=== PATIENT | female | born 1965 | race Caucasian/White ===

== ENCOUNTER 2016-05-19 10:29 | Emergency (ER) | payer SELFPAY ==
[2016-05-19 10:43] VITALS: TEMP 98; BMI 26.6
[2016-05-19] MEDS ORDERED: ONDANSETRON 4 MG/2 ML VIAL IVPB ONE (10:52)
[2016-05-19] MEDS ORDERED: FAMOTIDINE 20 MG/50 ML IVPB 50 ML IVPB ONE ×2 (10:52→11:45)
[2016-05-19] MEDS ORDERED: SODIUM CHLORIDE 1,000 ML IV STA ×2 (10:52→10:58)
--- NOTE | 2016-05-19 10:58 | PDOC ---
History of Present Illness - General Chief Complaint: Diarrhea Stated Complaint: ABD PAIN, NAUSEA Time Seen by Provider: 05/19/16 10:43 History Source: Patient Exam Limitations: No Limitations - History of Present Illness Travel History: No Initial Comments: 05/19/16 10:53 50 yr female PMH hypothyroidism, IBS with c/o diarrhea, nausea, abd bloating for 9 days. no fever. no vomiting. 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 Pt c/o cramping to her hands and her feet. Pt drinking well denies any urinary symptoms, no recent antibiotics. Timing/Duration: reports: getting worse Past History - Past Medical History Allergies/Adverse Reactions: Allergies Allergy/AdvReac Type Severity Reaction Status Date / Time latex Allergy Verified 05/19/16 10:37 Home Medications: Ambulatory Orders Ciprofloxacin [Cipro (Restricted To Id)] 500 mg PO Q12H #10 tablet 05/19/16 Levothyroxine [Synthroid -] 25 mcg PO DAILY 05/19/16 Loperamide HCl [Imodium -] 2 mg PO Q8H PRN #14 capsule MDD 16mg 05/19/16 Metronidazole 500 mg PO TID #30 tablet 05/19/16 Spironolactone [Aldactone] 150 mg PO DAILY 05/19/16 Other medical history: NONE - Surgical History Abdominal Surgery: Yes - Reproductive History LMP comment: 05/08/16 LMP Normal: Yes - Psycho/Social/Smoking Cessation Hx Suicidal Ideation: No Smoking History: Current every day smoker Number of Cigarettes Smoked Daily: 10 Information on smoking cessation initiated: No Hx Alcohol Use: No Drug/Substance Use Hx: No Substance Use Type: None Abd/GI Specific PMHX - Complaint Specific PMHX Colitis: No Irritable Bowel Synd (IBS): Yes Review of Systems - Review of Systems Able to Perform ROS?: Yes Is the patient limited Citizen Of [place] proficient: No Constitutional: No: Symptoms Reported HEENTM: No: Symptoms Reported Respiratory: No: Symptoms reported Cardiac (ROS): No: Symptoms Reported ABD/GI: Yes: Symptoms Reported, See HPI : No: Symptoms Reported Musculoskeletal: No: Symptoms Reported Integumentary: No: Symptoms Reported Neurological: Yes: Other (cramping to hands and feet) *Physical Exam - Vital Signs Last Vital Signs Temp Pulse Resp BP Pulse Ox 98.0 F 123 H 20 126/75 97 05/19/16 10:34 05/19/16 10:34 05/19/16 10:34 05/19/16 10:34 05/19/16 10:34 - Physical Exam General Appearance: Yes: Nourished, Appropriately Dressed HEENT: positive: EOMI, ANGIE, TMs Normal, Pharynx Normal, Other (dry tounge ) Neck: positive: Supple. negative: Tender, Lymphadenopathy (R), Lymphadenopathy (L) Respiratory/Chest: positive: Lungs Clear, Normal Breath Sounds. negative: Chest Tender Cardiovascular: positive: Regular Rhythm, Regular Rate Gastrointestinal/Abdominal: positive: Normal Bowel Sounds, Tender (generalised with bloating), Soft Lymphatic: negative: Adenopathy Musculoskeletal: positive: Normal Inspection Extremity: positive: Normal Capillary Refill, Normal Inspection, Normal Range of Motion Integumentary: positive: Normal Color, Dry, Warm Neurologic: positive: Fully Oriented, Alert, Normal Mood/Affect, Normal Response , Motor Strength 06/15 ED Treatment Course - LABORATORY CBC & Chemistry Diagram: 05/19/16 12:15 05/19/16 12:15 Medical Decision Making - Medical Decision Making 05/19/16 14:48 cc: lower bad pain with left flank pain spotting no vaginal discharge some dysuria 05/19/16 14:57 pt feels better after fluids. gave apple juice for low blood sugar. no diarrhea in the ER . 05/19/16 17:16 pt feels better after the fluids wants to eat and go home. dc inst disucssed and the results of the cat scan and blood work discussed will send home on cipro and flagly as pt has had diarrhea with dehydration for 9 -10 days afebrile at this time tolerating po now. strict follow up instructions discussed pt drank a bottle of gatorade feels better after gatorade 05/19/16 17:29 05/19/16 17:40 05/19/16 17:45 *DC/Admit/Observation/Transfer Diagnosis at time of Disposition: Diarrhea Qualifiers: Diarrhea type: presumed infectious Qualified Code(s): A09 - Infectious gastroenteritis and colitis, unspecified - Discharge Dispostion Disposition: HOME Condition at time of disposition: Good - Prescriptions Prescriptions: Ciprofloxacin [Cipro (Restricted To Id)] 500 mg PO Q12H #10 tablet Loperamide HCl [Imodium -] 2 mg PO Q8H PRN #14 capsule MDD 16mg PRN Reason: Diarrhea Metronidazole 500 mg PO TID #30 tablet - Referrals Referrals: Dileep Velasquez DO [Staff Physician] - - Patient Instructions Printed Discharge Instructions: DI for Viral Gastroenteritis -- Adult Additional Instructions: clear liquids then slowly advance to dry crackers, dry toast take the medication as prescribed take lactobacilus pills (over the counter) while taking the antibiotics you can also take immodium as directed for diarrhea and cramping follow with the gastroentrologist for follow up return to ER for any worsening symptoms - Post Discharge Activity Work/School Note: Back to Work
[2016-05-19] MEDS ORDERED: ONDANSETRON 4 MG/2 ML VIAL ONE (11:44)
[2016-05-19] MEDS ORDERED: ACETAMINOPHEN 500 MG TABLET (FP) PO ONE (12:24)
[2016-05-19 12:35] LABS: BASOPHIL 0.5 % (0-2.0); EOSINOPHIL 1.4 % (0-4.5); MCH 31.7 pg (25.7-33.7); MEAN CELL VOLUME 95.9 fl (80-96); MEAN PLT VOLUME 7.8 fl (7.5-11.1); NEUTROPHILS 60.9 % (42.8-82.8); PLATELET COUNT 346 K/MM3 (134-434); RDW 13.2 % (11.6-15.6); WHITE BLOOD COUNT 9.9 K/mm3 (4.0-10.0)
[2016-05-19] MEDS ORDERED: ACETAMINOPHEN 325 MG TABLET (FP) ONE (12:36)
[2016-05-19 12:48] LABS: URINE APPEARANCE CLEAR; URINE BILIRUBIN NEGATIVE (NEGATIVE); URINE BLOOD NEGATIVE (NEGATIVE); URINE COLOR STRAW; URINE GLUCOSE (UA) NEGATIVE (NEGATIVE); URINE KETONE NEGATIVE (NEGATIVE); URINE LEUK ESTERASE NEGATIVE (NEGATIVE); URINE NITRITE NEGATIVE (NEGATIVE); URINE PROTEIN NEGATIVE (NEGATIVE); URINE UROBILINOGEN NEGATIVE E.U./dl (0.2-1.0)
[2016-05-19] MEDS ORDERED: diazePAM 2 MG TABLET PO ONE (13:24)
[2016-05-19] MEDS ORDERED: KETOROLAC TROMETHAMINE 30 MG/1 ML VIAL IVPUSH ONE (13:25)
[2016-05-19 13:29] LABS: ALBUMIN 4.1 g/dl (3.4-5.0); ANION GAP 10 (8-16); BILIRUBIN,TOTAL 0.3 mg/dL (0.2-1.0); CALCIUM 8.9 mg/dL (8.5-10.1); CO2 26 mmol/L (21-32); CREATININE 0.9 mg/dL (0.55-1.02); GLUCOSE,RANDOM 68 mg/dL (74-106); SGOT/AST 16 U/L (15-37); SGPT/ALT 24 U/L (12-78); TOT PROT 7.7 g/dl (6.4-8.2)
[2016-05-19 13:30] LABS: ALK PHOS 91 U/L (45-117)
[2016-05-19 13:50] LABS: AMYLASE 50 U/L (25-115)
[2016-05-19] MEDS ORDERED: KETOROLAC TROMETHAMINE 30 MG/1 ML VIAL ONE (13:58)
[2016-05-19] MEDS ORDERED: diazePAM 2 MG TABLET ONE (13:58)
[2016-05-19] MEDS ORDERED: DEXTROSE 5%-0.45% SALINE 1,000 ML IV SCH (15:00)
--- NOTE | 2016-05-19 16:19 | EKG ---
Test Reason : Blood Pressure : / mmHG Vent. Rate : 101 BPM Atrial Rate : 101 BPM P-R Int : 162 ms QRS Dur : 084 ms QT Int : 360 ms P-R-T Axes : 061 006 048 degrees QTc Int : 466 ms SINUS TACHYCARDIA OTHERWISE NORMAL ECG NO PREVIOUS ECGS AVAILABLE Confirmed by SOCORRO ADAME MD ([id number]) on 05/19/2016 4:18:25 PM Referred By: Confirmed By:SOCORRO ADAME MD
[2016-05-19 18:04] VITALS: BP 111/75; PULSE 70
== END 2016-05-19 17:55 | disposition home or self-care (01) ==
LOC: JER 10:29
PROC: 3E0337Z Introduction of Electrolytic and Water Balance Substance into Peripheral Vein, Percutaneous Approach (ICD-10-PCS; principal; 2016-05-19)
PROC: 3E033GC Introduction of Other Therapeutic Substance into Peripheral Vein, Percutaneous Approach (ICD-10-PCS; 2016-05-19)
DX: A09 Infectious gastroenteritis and colitis, unspecified (principal); E03.9 Hypothyroidism, unspecified; K58.0 Irritable bowel syndrome with diarrhea
CPT/HCPCS: 36415; 74177-TC; 80053; 81003; 82150; 83690; 84703; 85025; 87070; 87430; 93005; 93010; 99283-25

== ENCOUNTER 2017-02-22 19:59 | Emergency (ER) | payer OTHER ==
--- NOTE | 2017-02-22 20:14 | PDOC ---
Rapid Medical Evaluation Chief Complaint: Head/Neck problem Time Seen by Provider: 02/22/17 20:11 Medical Evaluation: Allergies Allergy/AdvReac Type Severity Reaction Status Date / Time latex Allergy Verified 05/19/16 10:37 02/22/17 20:11 51yo female patient with no past medical problems presents to ED c/o being sick x 1 month. Patient was seen by PCP 4 weeks ago, and told her it was viral, patient return after not feeling well and put on Z-marivel, patient c/o symptoms worsened and prescribed Augmentin. 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 She denies any other complaints at this time. LNMP: 1 week ago. + smoker.
[2017-02-22 20:15] VITALS: BP 131/96; PULSE 95; TEMP 97.7; BMI 29.8
[2017-02-22 22:00] LABS: BASO % 0.7 % (0-2.0); EOS % 4.6 % (0-4.5); HEMATOCRIT 40.4 % (32.4-45.2); HEMOGLOBIN 13.6 GM/dL (10.7-15.3); LYMPH % 41.3 % (8-40); MCH 31.6 pg (25.7-33.7); MCHC 33.5 g/dl (32.0-36.0); MEAN CELL VOLUME 94.3 fl (80-96); MEAN PLT VOLUME 7.6 fl (7.5-11.1); MONO % 6.8 % (3.8-10.2); NEUT % 46.6 % (42.8-82.8); PLATELET COUNT 380 K/MM3 (134-434); RBC 4.29 M/mm3 (3.60-5.2); RDW 12.6 % (11.6-15.6); WHITE BLOOD COUNT 8.2 K/mm3 (4.0-10.0)
[2017-02-22 22:44] LABS: ALBUMIN 3.7 g/dl (3.4-5.0); ANION GAP 6 (8-16); BILIRUBIN,TOTAL 0.4 mg/dL (0.2-1.0); BLOOD UREA NITROGEN 9 mg/dL (7-18); CALCIUM 8.5 mg/dL (8.5-10.1); CHLORIDE 107 mmol/L (98-107); CO2 26 mmol/L (21-32); CREATININE 0.7 mg/dL (0.55-1.02); GLUCOSE,RANDOM 76 mg/dL (74-106); POTASSIUM 4.1 mmol/L (3.5-5.1); SGOT/AST 14 U/L (15-37); SGPT/ALT 22 U/L (12-78); SODIUM 139 mmol/L (136-145); TOT PROT 6.8 g/dl (6.4-8.2)
[2017-02-22 22:46] LABS: ALK PHOS 70 U/L (45-117)
[2017-02-22 23:17] LABS: URINE APPEARANCE CLEAR; URINE BILIRUBIN NEGATIVE (NEGATIVE); URINE BLOOD NEGATIVE (NEGATIVE); URINE COLOR STRAW; URINE GLUCOSE (UA) NEGATIVE (NEGATIVE); URINE KETONE TRACE (NEGATIVE); URINE LEUK ESTERASE NEGATIVE (NEGATIVE); URINE NITRITE NEGATIVE (NEGATIVE); URINE PROTEIN NEGATIVE (NEGATIVE); URINE UROBILINOGEN NEGATIVE mg/dL (0.2-1.0)
--- NOTE | 2017-02-23 00:05 | PDOC ---
History of Present Illness - General History Source: Patient Exam Limitations: No Limitations - History of Present Illness Initial Comments: 02/23/17 00:11 Patient is a 51 year old female with no significant past medical history of High cholesterol, who presents to the ED with complaints of right sided face and neck pain that began 1 month ago. Patient reports experiencing flu like symptoms 1 month ago, stating she experienced runny nose, congestion as well as right sided neck and face pain. She reports right side neck pain is an intense pain that has begun to radiate down her right arm and back. Patient reports experiencing general fatigue. She reports seeing pcp 2 weeks ago for same symptoms, and was prescribed Z pack for 5 days with no relief. Patient reports saturday neck pain began to worsen, prompting her to go to urgent care facility and was prescribed 875mg of amoxicillin. She reports pain began to increase in intensity again yesterday while at work prompting her to come into the ED today for evaluation. Patient reports experiencing intermittent blurred vision. 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 Denies chest pain, SOB. Denies nausea, vomiting. Denies fevers, chills. Denies out of state travel. Denies any other symptoms. Allergies: Latex Social history: Director of [employer]. No smoking. No alcohol. No illicit drugs. Surgical history: Breast surgery. Stomach surgery. PMD: Not of staff. <Rick Smith - Last Filed: 02/23/17 00:11> <Tamica Mares - Last Filed: 02/23/17 00:33> - General Chief Complaint: Head/Neck problem Stated Complaint: PAIN Time Seen by Provider: 02/22/17 20:11 Past History <Rick Smith - Last Filed: 02/23/17 00:11> - Surgical History Abdominal Surgery: Yes - Suicide/Smoking/Psychosocial Hx Smoking History: Current every day smoker Number of Cigarettes Smoked Daily: 10 Information on smoking cessation initiated: No Hx Alcohol Use: No Drug/Substance Use Hx: No Substance Use Type: None <Tamica Mares - Last Filed: 02/23/17 00:33> - Past Medical History Allergies/Adverse Reactions: Allergies Allergy/AdvReac Type Severity Reaction Status Date / Time latex Allergy Verified 05/19/16 10:37 Home Medications: Ambulatory Orders Ciprofloxacin [Cipro -] 500 mg PO Q12H #10 tablet 05/19/16 Levothyroxine [Synthroid -] 25 mcg PO DAILY 05/19/16 Loperamide HCl [Imodium -] 2 mg PO Q8H PRN #14 capsule MDD 16mg 05/19/16 Metronidazole 500 mg PO TID #30 tablet 05/19/16 Spironolactone [Aldactone] 150 mg PO DAILY 05/19/16 Ibuprofen [Motrin -] 600 mg PO TID #30 tablet 02/23/17 Methocarbamol [Robaxin -] 500 mg PO TID #30 tablet 02/23/17 Review of Systems - Review of Systems Able to Perform ROS?: Yes Comments:: 02/23/17 00:11 GENERAL/CONSTITUTIONAL: No fever or chills. No weakness. HEAD, EYES, EARS, NOSE AND THROAT: +Runny nose. +Congestion. No change in vision. No ear pain or discharge. No sore throat. CARDIOVASCULAR: No chest pain or shortness of breath. RESPIRATORY: No cough, wheezing, or hemoptysis. GASTROINTESTINAL: No nausea, vomiting, diarrhea or constipation. GENITOURINARY: No dysuria, frequency, or change in urination. MUSCULOSKELETAL: +Right sided face pain. +Right sided neck pain. No joint or muscle swelling or pain. No neck or back pain. SKIN: No rash NEUROLOGIC: No headache, vertigo, loss of consciousness, or change in strength/ sensation. ENDOCRINE: No increased thirst. No abnormal weight change. HEMATOLOGIC/LYMPHATIC: No anemia, easy bleeding, or history of blood clots. ALLERGIC/IMMUNOLOGIC: No hives or skin allergy. All Other Systems: Reviewed and Negative <Rick Smith - Last Filed: 02/23/17 00:11> *Physical Exam - Vital Signs Last Vital Signs Temp Pulse Resp BP Pulse Ox 97.7 F 95 H 20 131/96 100 02/22/17 20:11 02/22/17 20:11 02/22/17 20:11 02/22/17 20:11 02/22/17 20:11 - Physical Exam Comments: 02/23/17 00:11 GENERAL: Awake, alert, and fully oriented, in no acute distress HEAD: No signs of trauma EYES: PERRLA, EOMI, sclera anicteric, conjunctiva clear ENT: Auricles normal inspection, hearing grossly normal, nares patent, oropharynx clear without exudates. Moist mucosa NECK: Normal ROM, supple, no lymphadenopathy, JVD, or masses LUNGS: Breath sounds equal, clear to auscultation bilaterally. No wheezes, and no crackles HEART: Regular rate and rhythm, normal S1 and S2, no murmurs, rubs or gallops ABDOMEN: Soft, nontender, normoactive bowel sounds. No guarding, no rebound. No masses EXTREMITIES: Normal range of motion, no edema. No clubbing or cyanosis. No cords, erythema, or tenderness NEUROLOGICAL: Cranial nerves II through XII grossly intact. Normal speech, SKIN: Warm, Dry, normal turgor, no rashes or lesions noted. <Rick Smith - Last Filed: 02/23/17 00:11> - Vital Signs Last Vital Signs Temp Pulse Resp BP Pulse Ox 97.7 F 95 H 20 131/96 100 02/22/17 20:11 02/22/17 20:11 02/22/17 20:11 02/22/17 20:11 02/22/17 20:11 <Tamica Mares - Last Filed: 02/23/17 00:33> ED Treatment Course - LABORATORY CBC & Chemistry Diagram: 02/22/17 21:40 02/22/17 21:40 - ADDITIONAL ORDERS Additional order review: Laboratory Results 02/22/17 02/22/17 22:30 21:40 Sodium 139 Potassium 4.1 Chloride 107 Carbon Dioxide 26 Anion Gap 6 L BUN 9 Creatinine 0.7 Creat Clearance w eGFR > 60 Random Glucose 76 Calcium 8.5 Total Bilirubin 0.4 D AST 14 L ALT 22 Alkaline Phosphatase 70 Creatine Kinase 98 Troponin I < 0.02 Total Protein 6.8 Albumin 3.7 Urine Color Straw Urine Appearance Clear Urine pH 6.0 Ur Specific [place] 1.006 Urine Protein Negative Urine Glucose (UA) Negative Urine Ketones Trace H Urine Blood Negative Urine Nitrite Negative Urine Bilirubin Negative Urine Urobilinogen Negative Ur Leukocyte Esterase Negative 02/22/17 21:40 RBC 4.29 MCV 94.3 MCHC 33.5 RDW 12.6 MPV 7.6 Neutrophils % 46.6 D Lymphocytes % 41.3 H D Monocytes % 6.8 Eosinophils % 4.6 H D Basophils % 0.7 - Medications Given in the ED: ED Medications Discontinued Medications Generic Name Dose Route Start Last Admin Trade Name [place] PRN Reason Stop Dose Admin Diphenhydramine HCl 50 mg 02/22/17 21:34 02/22/17 22:42 Benadryl Injection - IVPB 02/22/17 21:35 50 mg ONCE ONE Administration Oxycodone/Acetaminophen 2 combo 02/22/17 21:34 02/22/17 22:42 Percocet 5/325 - PO 02/22/17 21:35 2 combo ONCE ONE Administration <Rick Smith - Last Filed: 02/23/17 00:11> - LABORATORY CBC & Chemistry Diagram: 02/22/17 21:40 02/22/17 21:40 - ADDITIONAL ORDERS Additional order review: Laboratory Results 02/22/17 02/22/17 22:30 21:40 Sodium 139 Potassium 4.1 Chloride 107 Carbon Dioxide 26 Anion Gap 6 L BUN 9 Creatinine 0.7 Creat Clearance w eGFR > 60 Random Glucose 76 Calcium 8.5 Total Bilirubin 0.4 D AST 14 L ALT 22 Alkaline Phosphatase 70 Creatine Kinase 98 Troponin I < 0.02 Total Protein 6.8 Albumin 3.7 Urine Color Straw Urine Appearance Clear Urine pH 6.0 Ur Specific [place] 1.006 Urine Protein Negative Urine Glucose (UA) Negative Urine Ketones Trace H Urine Blood Negative Urine Nitrite Negative Urine Bilirubin Negative Urine Urobilinogen Negative Ur Leukocyte Esterase Negative 02/22/17 21:40 RBC 4.29 MCV 94.3 MCHC 33.5 RDW 12.6 MPV 7.6 Neutrophils % 46.6 D Lymphocytes % 41.3 H D Monocytes % 6.8 Eosinophils % 4.6 H D Basophils % 0.7 - RADIOLOGY Radiology Studies Ordered: Category Date Time Status CERVICAL SPINE CT W/O CONTR [CT] Stat CT Scan 02/22/17 21:[address] WITHOUT CONTRAST [CT] Stat CT Scan 02/22/17 21:[address] W/O CONTRAST [CT] Stat CT Scan 02/22/17 21:24 Taken CHEST PA & LAT [RAD] Stat Radiology 02/22/17 21:13 Ordered - Medications Given in the ED: ED Medications Discontinued Medications Generic Name Dose Route Start Last Admin Trade Name [place] PRN Reason Stop Dose Admin Diphenhydramine HCl 50 mg 02/22/17 21:34 02/22/17 22:42 Benadryl Injection - IVPB 02/22/17 21:35 50 mg ONCE ONE Administration Oxycodone/Acetaminophen 2 combo 02/22/17 21:34 02/22/17 22:42 Percocet 5/325 - PO 02/22/17 21:35 2 combo ONCE ONE Administration <Tamica Mares - Last Filed: 02/23/17 00:33> Medical Decision Making - Medical Decision Making 02/23/17 00:03 Pt comes with neck and back pain. She has multiple bodily aches and pains. She was teated with a zpak and then augmentin 875 BID x 6 days (out of 10 days) Pt comes has no fever. She will be asked to follow with outpt ENT to r/o bacterial vs other sinus inflammation. <Tamica Mares - Last Filed: 02/23/17 00:33> *DC/Admit/Observation/Transfer - Attestations Scribe Attestion: 02/23/17 00:11 Documentation prepared by Rick Smith, acting as nurses medical assistants phlebotomists for Tamica Mares MD/DO. <Rick Smith - Last Filed: 02/23/17 00:11> - Discharge Dispostion Admit: No <Tamica Mares - Last Filed: 02/23/17 00:33> Diagnosis at time of Disposition: Fibromyalgia, Musculoskeletal back pain - Discharge Dispostion Disposition: HOME Condition at time of disposition: Stable - Patient Instructions Printed Discharge Instructions: Muscle Strain, DI for Sinusitis, DI for Cervical Muscle Strain - Post Discharge Activity Forms/Work/School Notes: Back to Work
[2017-02-23] MEDS ORDERED: AMOX TR/POT CLAV 875MG/125MG TABLETS (FP) PO ONE (00:10)
--- NOTE | 2017-02-23 16:46 | EKG ---
Test Reason : Blood Pressure : / mmHG Vent. Rate : 074 BPM Atrial Rate : 074 BPM P-R Int : 174 ms QRS Dur : 094 ms QT Int : 426 ms P-R-T Axes : 070 026 048 degrees QTc Int : 472 ms NORMAL SINUS RHYTHM NORMAL ECG WHEN COMPARED WITH ECG OF 19-MAY-2016 11:21, NO SIGNIFICANT CHANGE WAS FOUND Confirmed by SEBASTIÁN JOLLY MD ([id number]) on 02/23/2017 4:45:57 PM Referred By: Confirmed By:SEBASTIÁN JOLLY MD
== END 2017-02-23 00:47 | disposition home or self-care (01) ==
LOC: JER 19:59
PROC: 3E033GC Introduction of Other Therapeutic Substance into Peripheral Vein, Percutaneous Approach (ICD-10-PCS; principal; 2017-02-22)
DX: M79.7 Fibromyalgia (principal)
CPT/HCPCS: 36415; 70450-TC; 70480-TC; 71046-TC; 72125-TC; 80053; 81003; 82550; 84484; 85025; 93005; 93010; 99282-25

== ENCOUNTER 2017-07-18 16:19 | Emergency (ER) | payer OTHER ==
[2017-07-18 16:30] VITALS: TEMP 98; BMI 28.8
--- NOTE | 2017-07-18 16:44 | PDOC ---
Rapid Medical Evaluation Chief Complaint: Pain Time Seen by Provider: 07/18/17 16:26 Medical Evaluation: Allergies Allergy/AdvReac Type Severity Reaction Status Date / Time latex Allergy Verified 07/18/17 16:26 Vital Signs Temp Pulse Resp BP Pulse Ox 98.0 F 79 18 124/83 100 07/18/17 16:26 07/18/17 16:26 07/18/17 16:26 07/18/17 16:26 07/18/17 16:26 07/18/17 16:42 pt c/o: ruq, abd pain with abd distention Pt on exam : epigastric and ruq pain, bs +x4 Pt ordered for : labs, ekg, urine, and kub, Pt to proceed to the ED Discharge Disposition - Diagnosis Epigastric abdominal pain - Discharge Dispostion Disposition: HOME Condition at time of disposition: Good Last Admission D/C Date: 05/12/98 - Prescriptions Prescriptions: Oxycodone HCl/Acetaminophen [Percocet 5-325 mg Tablet] 1 tab PO Q6H PRN #15 tablet MDD 4 PRN Reason: Pain Pantoprazole Sodium [Protonix] 40 mg PO DAILY #14 tablet. Ranitidine HCl [Zantac] 150 mg PO BID PRN #14 tablet PRN Reason: GERD - Referrals Referrals: Yajaira Zuñiga MD [Primary Care Provider] - Marky Treviño MD [Staff Physician] - - Patient Instructions Printed Discharge Instructions: [place] Diet, DI for Gastritis Additional Instructions: Please take 40 mg protonix daily. For additional relief, take a tablet of zantac every 12 hours as needed for pain control. Drink plenty of fluids and rest. You will need a GI followup. Please call tomorrow and schedule a follow up appointment. Print Language: MACEDONIAN - Post Discharge Activity Work/School Note: Back to Work
[2017-07-18 17:35] LABS: BASO % 0.5 % (0-2.0); EOS % 2.2 % (0-4.5); LYMPH % 33.9 % (8-40); MCH 32.4 pg (25.7-33.7); MCHC 34.2 g/dl (32.0-36.0); MEAN CELL VOLUME 94.6 fl (80-96); MEAN PLT VOLUME 7.7 fl (7.5-11.1); MONO % 6.4 % (3.8-10.2); PLATELET COUNT 353 K/MM3 (134-434); RBC 4.34 M/mm3 (3.60-5.2); RDW 12.9 % (11.6-15.6); WHITE BLOOD COUNT 8.2 K/mm3 (4.0-10.0)
[2017-07-18] MEDS ORDERED: ONDANSETRON 4 MG/2 ML VIAL IVPUSH ONE (17:53)
[2017-07-18] MEDS ORDERED: SODIUM CHLORIDE 1,000 ML IV STA (17:53)
[2017-07-18] MEDS ORDERED: FAMOTIDINE 20 MG/50 ML IVPB 20 MG/50 ML MG IVPB ONE ×2 (17:53→17:57)
[2017-07-18] MEDS ORDERED: MAG HYDROX/AL HYDROX/SIMETH 30 ML UNIT-DOSE CUP PO ONE (17:54)
--- NOTE | 2017-07-18 17:54 | PDOC ---
History of Present Illness - General History Source: Patient Exam Limitations: No Limitations - History of Present Illness Initial Comments: 07/18/17 19:12 The patient is a 51 year old female with no past medical history who presents to the emergency department for evaluation of epigastric pain. The patient reports moderate mid epigastric pain which is exacerbated with eating. She describes the pain as diffuse but localized in the mid epigastric area. The patient states she felt a bulge in her stomach. The patient reports bowel incontinence. She states her bowel has been a normal brown color, but comes out as strings of elena. The patient states she called her PCP who advised her to go to the emergency department for evaluation for concern of gallbladder. The patient denies chest pain, shortness of breath, headache, and dizziness. Denies fevers, chills, nausea, vomiting, and diarrhea. Allergies: Latex Past surgical history: Abdominoplasty, breast augmentation, T&A Social history: Current everyday smoker. No reported alcohol consumption or drug use. PCP: Dr. Zuñiga ([phone]) <Raoul Dumas - Last Filed: 07/18/17 19:12> <Heidy Ramirez - Last Filed: 07/19/17 21:06> - General Chief Complaint: Pain Stated Complaint: UPPER ABDOMINAL PAIN Time Seen by Provider: 07/18/17 16:26 Past History <Raoul Dumas - Last Filed: 07/18/17 19:12> - Past Medical History COPD: No - Surgical History Abdominal Surgery: Yes (abdomino plasty,breast augmentation) - Suicide/Smoking/Psychosocial Hx Smoking History: Current every day smoker Have you smoked in the past 12 months: Yes Number of Cigarettes Smoked Daily: 10 Information on smoking cessation initiated: Yes 'Breaking Loose' booklet given: 07/18/17 Hx Alcohol Use: No Drug/Substance Use Hx: No Substance Use Type: None <Heidy Ramirez - Last Filed: 07/19/17 21:06> - Past Medical History Allergies/Adverse Reactions: Allergies Allergy/AdvReac Type Severity Reaction Status Date / Time latex Allergy Verified 07/18/17 17:06 Home Medications: Ambulatory Orders Oxycodone HCl/Acetaminophen [Percocet 5-325 mg Tablet] 1 tab PO Q6H PRN #15 tablet MDD 4 06/07/18 Pantoprazole Sodium [Protonix] 40 mg PO DAILY #14 tablet. 07/18/17 Ranitidine HCl [Zantac] 150 mg PO BID PRN #14 tablet 07/18/17 Review of Systems - Review of Systems Able to Perform ROS?: Yes Comments:: GENERAL/CONSTITUTIONAL: No fever or chills. No weakness. HEAD, EYES, EARS, NOSE AND THROAT: No change in vision. No ear pain or discharge. No sore throat. CARDIOVASCULAR: No chest pain or shortness of breath. RESPIRATORY: No cough, wheezing, or hemoptysis. GASTROINTESTINAL: (+)Constipation. No nausea, vomiting, diarrhea or constipation. GENITOURINARY: No dysuria, frequency, or change in urination. MUSCULOSKELETAL: (+)Mid epigastric pain. No joint or muscle swelling. No neck or back pain. SKIN: No rash NEUROLOGIC: No headache, vertigo, loss of consciousness, or change in strength/ sensation. ENDOCRINE: No increased thirst. No abnormal weight change. HEMATOLOGIC/LYMPHATIC: No anemia, easy bleeding, or history of blood clots. ALLERGIC/IMMUNOLOGIC: No hives or skin allergy. <Raoul Dumas - Last Filed: 07/18/17 19:12> *Physical Exam - Vital Signs Last Vital Signs Temp Pulse Resp BP Pulse Ox 98.0 F 79 18 124/83 100 07/18/17 16:26 07/18/17 16:26 07/18/17 16:26 07/18/17 16:26 07/18/17 16:26 - Physical Exam Comments: GENERAL: Awake, alert, and fully oriented, in no acute distress HEAD: No signs of trauma EYES: PERRLA, EOMI, sclera anicteric, conjunctiva clear ENT: Auricles normal inspection, hearing grossly normal, nares patent. NECK: Normal ROM, supple. LUNGS: Breath sounds equal, clear to auscultation bilaterally. No wheezes, and no crackles HEART: Regular rate and rhythm, normal S1 and S2, no murmurs, rubs or gallops ABDOMEN: (+)Tenderness to epigastrium, mild guarding, no rebound, no bulges.(+) Tenderness to right upper quadrant. EXTREMITIES: Normal range of motion, no edema. No clubbing or cyanosis. No cords, erythema, or tenderness NEUROLOGICAL: Cranial nerves II through XII grossly intact. Normal speech. SKIN: Warm, Dry, normal turgor, no rashes or lesions noted. <Raoul Dumas - Last Filed: 07/18/17 19:12> - Vital Signs Last Vital Signs Temp Pulse Resp BP Pulse Ox 98.0 F 79 18 124/83 100 07/18/17 16:26 07/18/17 16:26 07/18/17 16:26 07/18/17 16:26 07/18/17 16:26 <Heidy Ramirez - Last Filed: 07/19/17 21:06> ED Treatment Course - LABORATORY CBC & Chemistry Diagram: 07/18/17 17:15 07/18/17 17:15 - ADDITIONAL ORDERS Additional order review: Laboratory Results 07/18/17 07/18/17 17:46 17:15 Sodium 138 Potassium 4.0 Chloride 106 Carbon Dioxide 25 Anion Gap 7 L BUN 9 Creatinine 0.7 Creat Clearance w eGFR > 60 Random Glucose 77 Calcium 9.2 Total Bilirubin 0.3 D AST 14 L ALT 24 Alkaline Phosphatase 69 Total Protein 6.8 Albumin 3.7 Lipase 110 Urine Color Ltyellow Urine Appearance Clear Urine pH 6.0 Ur Specific [place] 1.006 Urine Protein Negative Urine Glucose (UA) Negative Urine Ketones Negative Urine Blood 1+ H Urine Nitrite Negative Urine Bilirubin Negative Urine Urobilinogen Negative Ur Leukocyte Esterase Negative Urine WBC (Auto) 5 Urine RBC (Auto) 1 Ur Epithelial Cells Rare Urine Bacteria Many Hyaline Casts 1 Urine Mucus Rare Urine HCG, Qual Negative 07/18/17 17:15 RBC 4.34 MCV 94.6 MCHC 34.2 RDW 12.9 MPV 7.7 Neutrophils % 57.0 D Lymphocytes % 33.9 Monocytes % 6.4 Eosinophils % 2.2 Basophils % 0.5 - Medications Given in the ED: ED Medications Discontinued Medications Generic Name Dose Route Start Last Admin Trade Name Freq PRN Reason Stop Dose Admin Acetaminophen 1,000 mg 07/18/17 18:32 07/18/17 18:43 Ofirmev Injection - IVPB 07/18/17 18:33 1,000 mg ONCE ONE Administration Al Hydroxide/Mg Hydroxide 30 ml 07/18/17 17:54 07/18/17 18:03 Mylanta Oral Suspension - PO 07/18/17 17:55 30 ml ONCE ONE Administration Famotidine/Sodium Chloride 20 mg in 50 mls @ 100 mls/hr 07/18/17 17:53 18:03 Pepcid 20 Mg Premixed Ivpb - IVPB 07/18/17 18:22 100 mls/hr ONCE ONE Administration Sodium Chloride 1,000 mls @ 1,000 mls/hr 07/18/17 17:53 07/18/17 18:03 Normal Saline - IV 07/18/17 18:52 1,000 mls/hr ASDIR STA Administration Morphine Sulfate 4 mg 07/18/17 18:02 07/18/17 18:09 Morphine Injection - IVPUSH 07/18/17 18:03 4 mg ONCE ONE Administration Morphine Sulfate 4 mg 07/18/17 18:55 07/18/17 19:04 Morphine Injection - IVPUSH 07/18/17 18:56 Not Given ONCE ONE Ondansetron HCl 4 mg 07/18/17 17:53 07/18/17 18:03 Zofran Injection IVPUSH 07/18/17 17:54 4 mg ONCE ONE Administration <Raoul Dumas - Last Filed: 07/18/17 19:12> - LABORATORY CBC & Chemistry Diagram: 07/18/17 17:15 07/18/17 17:15 - ADDITIONAL ORDERS Additional order review: 07/18/17 17:15 RBC 4.34 MCV 94.6 MCHC 34.2 RDW 12.9 MPV 7.7 Neutrophils % 57.0 D Lymphocytes % 33.9 Monocytes % 6.4 Eosinophils % 2.2 Basophils % 0.5 <Heidy Ramirez - Last Filed: 07/19/17 21:06> Medical Decision Making - Medical Decision Making 07/18/17 18:12 Pt presents to the ED complaining of epigastric pain, which is worse after eating. + tenderness in the epigastric region. Differential includes pancreatitis, gallstones, less likely ACS, ulcers. Will check labs give pain and nausea control, check abdominal US, reassess. <Heidy Ramirez - Last Filed: 07/19/17 21:06> *DC/Admit/Observation/Transfer - Attestations Scribe Attestion: Documentation prepared by Raoul Dumas, acting as medical cost consultant for Heidy Ramirez MD. <Raoul Dumas - Last Filed: 07/18/17 19:12> - Discharge Dispostion Decision to Admit order: No <Truong Ramireziam - Last Filed: 07/19/17 21:06> Diagnosis at time of Disposition: Epigastric abdominal pain - Discharge Dispostion Disposition: HOME Condition at time of disposition: Good - Prescriptions Prescriptions: Oxycodone HCl/Acetaminophen [Percocet 5-325 mg Tablet] 1 tab PO Q6H PRN #15 tablet MDD 4 PRN Reason: Pain Pantoprazole Sodium [Protonix] 40 mg PO DAILY #14 tablet. Ranitidine HCl [Zantac] 150 mg PO BID PRN #14 tablet PRN Reason: GERD - Referrals Referrals: Yajaira Zuñiga MD [Primary Care Provider] - Marky Treviño MD [Staff Physician] - - Patient Instructions Printed Discharge Instructions: [place] Diet, DI for Gastritis Additional Instructions: Please take 40 mg protonix daily. For additional relief, take a tablet of zantac every 12 hours as needed for pain control. Drink plenty of fluids and rest. You will need a GI followup. Please call tomorrow and schedule a follow up appointment. Print Language: ANGOLAN - Post Discharge Activity Forms/Work/School Notes: Back to Work
[2017-07-18] MEDS ORDERED: ONDANSETRON 4 MG/2 ML VIAL ONE (17:57)
[2017-07-18] MEDS ORDERED: MAG HYDROX/AL HYDROX/SIMETH 30 ML UNIT-DOSE CUP ONE (17:57)
[2017-07-18 17:59] LABS: ALBUMIN 3.7 g/dl (3.4-5.0); ANION GAP 7 (8-16); BILIRUBIN,TOTAL 0.3 mg/dL (0.2-1.0); BLOOD UREA NITROGEN 9 mg/dL (7-18); CALCIUM 9.2 mg/dL (8.5-10.1); CHLORIDE 106 mmol/L (98-107); CO2 25 mmol/L (21-32); CREATININE 0.7 mg/dL (0.55-1.02); GLUCOSE,RANDOM 77 mg/dL (74-106); LIPASE 110 U/L (73-393); SGOT/AST 14 U/L (15-37); SGPT/ALT 24 U/L (12-78); SODIUM 138 mmol/L (136-145); TOT PROT 6.8 g/dl (6.4-8.2)
[2017-07-18 18:00] LABS: ALK PHOS 69 U/L (45-117)
[2017-07-18] MEDS ORDERED: morphine CARPU-JECT 4 MG/1 ML DISP.SYRIN IVPUSH ONE ×2 (18:02→18:55)
[2017-07-18] MEDS ORDERED: morphine SULFATE 4 MG/ML VIAL ONE ×2 (18:05→18:56)
[2017-07-18 18:16] LABS: URINE APPEARANCE CLEAR; URINE BILIRUBIN NEGATIVE (<2.0 mg/dL); URINE BLOOD 1+ (NEGATIVE); URINE COLOR LTYELLOW; URINE GLUCOSE (UA) NEGATIVE (NEGATIVE); URINE KETONE NEGATIVE (NEGATIVE); URINE LEUK ESTERASE NEGATIVE (NEGATIVE); URINE NITRITE NEGATIVE (NEGATIVE); URINE PROTEIN NEGATIVE (NEGATIVE); URINE UROBILINOGEN NEGATIVE mg/dL (0.2-1.0)
[2017-07-18 18:28] LABS: EPI CELLS RARE /HPF (FEW); URINE BACTERIA MANY /hpf (NONE SEEN); URINE HYALINE CAST 1 /lpf; URINE MUCUS RARE
[2017-07-18] MEDS ORDERED: ACETAMINOPHEN 1000 MG/100 ML VIAL (NON FORMULARY) IVPB ONE (18:32)
[2017-07-18] MEDS ORDERED: ACETAMINOPHEN INJECTION 100 ML IVPB ONE (18:39)
[2017-07-18 18:43] LABS: HCG,QUALITATIVE URINE NEGATIVE
[2017-07-18 20:17] VITALS: BP 127/78; PULSE 84
--- NOTE | 2017-07-18 23:04 | PDOC ---
*Physical Exam - Vital Signs Last Vital Signs Temp Pulse Resp BP Pulse Ox 98.0 F 84 17 127/78 98 07/18/17 16:26 07/18/17 20:16 07/18/17 20:16 07/18/17 20:16 07/18/17 20:16 ED Treatment Course - LABORATORY CBC & Chemistry Diagram: 07/18/17 17:15 07/18/17 17:15 - ADDITIONAL ORDERS Additional order review: Laboratory Results 07/18/17 07/18/17 17:46 17:15 Sodium 138 Potassium 4.0 Chloride 106 Carbon Dioxide 25 Anion Gap 7 L BUN 9 Creatinine 0.7 Creat Clearance w eGFR > 60 Random Glucose 77 Calcium 9.2 Total Bilirubin 0.3 D AST 14 L ALT 24 Alkaline Phosphatase 69 Total Protein 6.8 Albumin 3.7 Lipase 110 Urine Color Ltyellow Urine Appearance Clear Urine pH 6.0 Ur Specific [place] 1.006 Urine Protein Negative Urine Glucose (UA) Negative Urine Ketones Negative Urine Blood 1+ H Urine Nitrite Negative Urine Bilirubin Negative Urine Urobilinogen Negative Ur Leukocyte Esterase Negative Urine WBC (Auto) 5 Urine RBC (Auto) 1 Ur Epithelial Cells Rare Urine Bacteria Many Hyaline Casts 1 Urine Mucus Rare Urine HCG, Qual Negative 07/18/17 17:15 RBC 4.34 MCV 94.6 MCHC 34.2 RDW 12.9 MPV 7.7 Neutrophils % 57.0 D Lymphocytes % 33.9 Monocytes % 6.4 Eosinophils % 2.2 Basophils % 0.5 - RADIOLOGY Radiology Studies Ordered: Category Date Time Status ABDOMEN & PELVIS CT WITH CONTR [CT] Stat CT Scan 07/18/17 20:27 Completed - Medications Given in the ED: ED Medications Discontinued Medications Generic Name Dose Route Start Last Admin Trade Name [place] PRN Reason Stop Dose Admin Acetaminophen 1,000 mg 07/18/17 18:32 07/18/17 18:43 Ofirmev Injection - IVPB 07/18/17 18:33 1,000 mg ONCE ONE Administration Al Hydroxide/Mg Hydroxide 30 ml 07/18/17 17:54 07/18/17 18:03 Mylanta Oral Suspension - PO 07/18/17 17:55 30 ml ONCE ONE Administration Fentanyl 25 mcg 07/18/17 19:01 07/18/17 19:17 Sublimaze Injection - IVPUSH 07/18/17 19:02 25 mcg ONCE ONE Administration Fentanyl 25 mcg 07/18/17 21:54 07/18/17 22:06 Sublimaze Injection - IVPUSH 07/18/17 21:55 25 mcg ONCE ONE Administration Famotidine/Sodium Chloride 20 mg in 50 mls @ 100 mls/hr 07/18/17 17:53 18:03 Pepcid 20 Mg Premixed Ivpb - IVPB 07/18/17 18:22 100 mls/hr ONCE ONE Administration Sodium Chloride 1,000 mls @ 1,000 mls/hr 07/18/17 17:53 07/18/17 18:03 Normal Saline - IV 07/18/17 18:52 1,000 mls/hr ASDIR STA Administration Morphine Sulfate 4 mg 07/18/17 18:02 07/18/17 18:09 Morphine Injection - IVPUSH 07/18/17 18:03 4 mg ONCE ONE Administration Morphine Sulfate 4 mg 07/18/17 18:55 07/18/17 19:04 Morphine Injection - IVPUSH 07/18/17 18:56 Not Given ONCE ONE Ondansetron HCl 4 mg 07/18/17 17:53 07/18/17 18:03 Zofran Injection IVPUSH 07/18/17 17:54 4 mg ONCE ONE Administration Medical Decision Making - Medical Decision Making 07/18/17 22:59 Sign-out received from outgoing Emergency Physician Dr. Ramirez Pt interviewed and examined Ancillary studies reviewed Case discussed in detail with oncoming Emergency Physician including history, physical exam and ancillary studies. Urine Test Results Urine Color Ltyellow 07/18/17 17:46 Urine Appearance Clear 07/18/17 17:46 Urine pH 6.0 (5.0-8.0) 07/18/17 17:46 Ur Specific [place] 1.006 (1.001-1.035) 07/18/17 17:46 Urine Protein Negative (NEGATIVE) 07/18/17 17:46 Urine Glucose (UA) Negative (NEGATIVE) 07/18/17 17:46 Urine Ketones Negative (NEGATIVE) 07/18/17 17:46 Urine Blood 1+ (NEGATIVE) H 07/18/17 17:46 Urine Nitrite Negative (NEGATIVE) 07/18/17 17:46 Urine Bilirubin Negative (<2.0 mg/dL) 07/18/17 17:46 Ur Leukocyte Esterase Negative (NEGATIVE) 07/18/17 17:46 Ur Epithelial Cells Rare /HPF (FEW) 07/18/17 17:46 Urine Bacteria Many /hpf (NONE SEEN) 07/18/17 17:46 Urine Mucus Rare 07/18/17 17:46 CBC, BMP 07/18/17 17:15 07/18/17 17:15 CMP Sodium 138 mmol/L (136-145) 07/18/17 17:15 Potassium 4.0 mmol/L (3.5-5.1) 07/18/17 17:15 Chloride 106 mmol/L (98-107) 07/18/17 17:15 Carbon Dioxide 25 mmol/L (21-32) 07/18/17 17:15 Anion Gap 7 (8-16) L 07/18/17 17:15 BUN 9 mg/dL (7-18) 07/18/17 17:15 Creatinine 0.7 mg/dL (0.55-1.02) 07/18/17 17:15 Creat Clearance w eGFR > 60 (>60) 07/18/17 17:15 Random Glucose 77 mg/dL (74-106) 07/18/17 17:15 Calcium 9.2 mg/dL (8.5-10.1) 07/18/17 17:15 Total Bilirubin 0.3 mg/dL (0.2-1.0) D 07/18/17 17:15 AST 14 U/L (15-37) L 07/18/17 17:15 ALT 24 U/L (12-78) 07/18/17 17:15 Alkaline Phosphatase 69 U/L (45-117) 07/18/17 17:15 Total Protein 6.8 g/dl (6.4-8.2) 07/18/17 17:15 Albumin 3.7 g/dl (3.4-5.0) 07/18/17 17:15 Lipase 110 U/L (73-393) 07/18/17 17:15 CT and ultrasound reviewed. No acute findings. I was signed out a patient with upper abdominal pain. The patient has epigastric pain but with a workup here that is unremarkable, I suspect the patient may potentially have gastritis or peptic ulcer disease. We'll initiate the patient on Protonix and Zantac and have the patient follow up with gastrology. I advised the patient may require endoscopy to further evaluate for ulcer disease or H. pylori. Patient will be driven home by her family. She verbalizes understanding and agrees with plan. I discussed the physical exam findings, ancillary test results and final diagnoses with the patient. I answered all of the patient's questions. The patient was satisfied with the care received and felt comfortable with the discharge plan and treatment plan. The patient will call their primary care physician within 24 hours to arrange follow-up and will return to the Emergency Department with any new, persistant or worsening symptoms. *DC/Admit/Observation/Transfer Diagnosis at time of Disposition: Epigastric abdominal pain - Discharge Dispostion Disposition: HOME Condition at time of disposition: Stable Decision to Admit order: No - Prescriptions Prescriptions: Oxycodone HCl/Acetaminophen [Percocet 5-325 mg Tablet] 1 tab PO Q6H PRN #15 tablet MDD 4 PRN Reason: Pain Pantoprazole Sodium [Protonix] 40 mg PO DAILY #14 tablet. Ranitidine HCl [Zantac] 150 mg PO BID PRN #14 tablet PRN Reason: GERD - Referrals Referrals: Yajaira Zuñiga MD [Primary Care Provider] - Marky Treviño MD [Staff Physician] - - Patient Instructions Printed Discharge Instructions: DI for Gastritis, [place] Diet Additional Instructions: Please take 40 mg protonix daily. For additional relief, take a tablet of zantac every 12 hours as needed for pain control. Drink plenty of fluids and rest. You will need a GI followup. Please call tomorrow and schedule a follow up appointment. Print Language: DOMINICAN - Post Discharge Activity Forms/Work/School Notes: Back to Work
--- NOTE | 2017-07-19 10:25 | EKG ---
Test Reason : Blood Pressure : / mmHG Vent. Rate : 075 BPM Atrial Rate : 075 BPM P-R Int : 170 ms QRS Dur : 090 ms QT Int : 384 ms P-R-T Axes : 055 -05 053 degrees QTc Int : 428 ms NORMAL SINUS RHYTHM CANNOT RULE OUT ANTERIOR INFARCT , AGE UNDETERMINED ABNORMAL ECG WHEN COMPARED WITH ECG OF 22-FEB-2017 23:23, NO SIGNIFICANT CHANGE WAS FOUND Confirmed by JAMIE ROMO MD ([id number]) on 07/19/2017 10:24:54 AM Referred By: Confirmed By:JAMIE ROMO MD
== END 2017-07-18 23:24 | disposition home or self-care (01) ==
LOC: JER 16:19
DX: R10.13 Epigastric pain (principal)
CPT/HCPCS: 36415; 74177-TC; 76705-TC; 80053; 81003; 81015; 83690; 84703; 85025; 93005; 93010; 99284-25; J0131; J7030

== ENCOUNTER 2018-02-17 10:23 | Emergency (ER) | payer OTHER ==
[2018-02-17 10:33] VITALS: BP 128/78; PULSE 86; TEMP 97.9; BMI 29.0
[2018-02-17 11:26] LABS: URINE APPEARANCE CLEAR; URINE BILIRUBIN NEGATIVE (<2.0 mg/dL); URINE COLOR LTYELLOW; URINE GLUCOSE (UA) NEGATIVE (NEGATIVE); URINE KETONE NEGATIVE (NEGATIVE); URINE LEUK ESTERASE NEGATIVE (NEGATIVE); URINE NITRITE NEGATIVE (NEGATIVE); URINE PROTEIN NEGATIVE (NEGATIVE); URINE UROBILINOGEN NEGATIVE mg/dL (0.2-1.0)
[2018-02-17 11:38] LABS: EPI CELLS RARE /HPF (FEW); URINE BACTERIA RARE /hpf (NONE SEEN)
--- NOTE | 2018-02-17 12:21 | PDOC ---
History of Present Illness - General Chief Complaint: Vaginal Sxs Stated Complaint: PAIN Time Seen by Provider: 02/17/18 11:21 History Source: Patient Exam Limitations: Clinical Condition - History of Present Illness Initial Comments: 02/17/18 12:15 Patient with no significant past medical history present with complaint of suprapubic tenderness, vaginal discharge with internal vaginal itching, and dysuria since last night. Patient reported she just finished a ten-day course of Levaquin antibiotics for UTI a week ago. Patient reported she woke up overnight with suprapubic tenderness.Patient denies fever, chills or any other symptoms. Timing/Duration: 24 hours Past History - Past Medical History Allergies/Adverse Reactions: Allergies Allergy/AdvReac Type Severity Reaction Status Date / Time latex Allergy Verified 02/17/18 11:25 Home Medications: Ambulatory Orders Griseofulvin, Microsize [Griseofulvin] 500 mg PO BID 10 Days #20 tablet Nitrofurantoin Monohyd/M-Cryst [Macrobid -] 100 mg PO BID #14 capsule 02/17/18 Phenazopyridine HCl [Pyridium -] 100 mg PO PC #6 tablet 02/17/18 Spironolactone 100 mg PO DAILY 02/17/18 Terconazole 80 mg VG HS #5 supp.vag 02/17/18 COPD: No - Surgical History Abdominal Surgery: Yes (abdomino plasty,breast augmentation) Cholecystectomy: No - Immunization History Immunization Up to Date: No - Suicide/Smoking/Psychosocial Hx Smoking History: Never smoked Have you smoked in the past 12 months: No Number of Cigarettes Smoked Daily: 10 Information on smoking cessation initiated: No 'Breaking Loose' booklet given: 07/18/17 Hx Alcohol Use: No Drug/Substance Use Hx: No Substance Use Type: None Review of Systems - Review of Systems Able to Perform ROS?: Yes Is the patient limited Albanian proficient: No Constitutional: No: Fever, Weakness HEENTM: No: Symptoms Reported Respiratory: No: Symptoms reported Cardiac (ROS): No: Symptoms Reported ABD/GI: Yes: Abdominal cramping (suprapubic). No: Nausea, Vomiting : Yes: See HPI, Dysuria, Discharge, Pain (suprapubic), Urgency. No: Flank Pain Musculoskeletal: No: Back Pain All Other Systems: Reviewed and Negative *Physical Exam - Vital Signs Last Vital Signs Temp Pulse Resp BP Pulse Ox 97.9 F 86 18 128/78 98 02/17/18 10:31 02/17/18 10:31 02/17/18 10:31 02/17/18 10:31 02/17/18 10:31 - Physical Exam Comments: 02/17/18 12:18 GENERAL: Well developed, well nourished. Awake and alert. No acute distress. NECK: Supple. Full ROM. CARDIOVASCULAR: Regular rate and rhythm. No murmurs, rubs, or gallops. Distal pulses are 2+ and symmetric. PULMONARY: No evidence of respiratory distress. Lungs clear to auscultation bilaterally. No wheezing, rales or rhonchi. ABDOMINAL: Soft. Non-tender. Non-distended. No rebound or guarding. No organomegaly. Normoactive bowel sounds. : mild scant thick white non-malodorous discharge in vaginal vault. no visible lesions. no blood in vault. no CMT SKIN: Warm and dry. Normal capillary refill. No rashes. No jaundice. NEUROLOGICAL: Alert, awake, appropriate. Gait is normal without ataxia. PSYCHIATRIC: Cooperative. Good eye contact. Appropriate mood General Appearance: Yes: Nourished, Appropriately Dressed. No: Apparent Distress Moderate Sedation - Procedure Monitoring Vital Signs: Procedure Monitoring Vital Signs Temperature 97.9 F 02/17/18 10:31 Pulse Rate 86 02/17/18 10:31 Respiratory Rate 18 02/17/18 10:31 Blood Pressure 128/78 02/17/18 10:31 O2 Sat by Pulse Oximetry (%) 98 02/17/18 10:31 ED Treatment Course - ADDITIONAL ORDERS Additional order review: Laboratory Results 02/17/18 11:00 Urine Color Ltyellow Urine Appearance Clear Urine pH 6.0 Ur Specific [place] 1.005 L Urine Protein Negative Urine Glucose (UA) Negative Urine Ketones Negative Urine Blood 1+ H Urine Nitrite Negative Urine Bilirubin Negative Urine Urobilinogen Negative Ur Leukocyte Esterase Negative Urine WBC (Auto) None Urine RBC (Auto) 2 Ur Epithelial Cells Rare Urine Bacteria Rare Medical Decision Making - Medical Decision Making 02/17/18 12:20 Patient with no significant past medical history present with complaint of suprapubic tenderness, vaginal discharge with internal vaginal itching, and dysuria since last night. Patient reported she just finished a ten-day course of Levaquin antibiotics for UTI a week ago Exam significant for scant thick white discharge in vaginal vault. No visible lesions scenes. No blood in vaginal vault. Swab of vaginal discharge obtained for culture. Symptoms likely vaginal candidiasis. Patient is stable for outpatient treatment with terconazole and Macrobid for UTI with [facility] follow-up. *DC/Admit/Observation/Transfer Diagnosis at time of Disposition: Vaginal candidiasis UTI (urinary tract infection) Qualifiers: Urinary tract infection type: acute cystitis Hematuria presence: without hematuria Qualified Code(s): N30.00 - Acute cystitis without hematuria - Discharge Dispostion Disposition: HOME Condition at time of disposition: Stable Decision to Admit order: No - Prescriptions Prescriptions: Griseofulvin, Microsize [Griseofulvin] 500 mg PO BID 10 Days #20 tablet Nitrofurantoin Monohyd/M-Cryst [Macrobid -] 100 mg PO BID #14 capsule Phenazopyridine HCl [Pyridium -] 100 mg PO PC #6 tablet Terconazole 80 mg VG HS #5 supp.vag - Referrals Referrals: Cameron Souza [Primary Care Provider] - - Patient Instructions Printed Discharge Instructions: DI for Vaginal Yeast Infection Additional Instructions: Take medications as prescribed. Follow-up with your [facility] as soon as possible for reassessment. - Post Discharge Activity Forms/Work/School Notes: Back to Work
== END 2018-02-17 12:27 | disposition home or self-care (01) ==
LOC: JERFT 10:23
DX: N30.00 Acute cystitis without hematuria (principal); B37.3 Candidiasis of vulva and vagina
CPT/HCPCS: 81003; 81015; 87070; 87086; 87205; 99281-25